=== PATIENT | male | born 1990 | race African-American/Black ===

== ENCOUNTER 2019-10-13 23:47 | Emergency (ER) | payer SELFPAY ==
[2019-10-13 23:54] VITALS: BP 130/64; PULSE 78; RESP 18; TEMP 36.9; O2SAT 100
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
[2019-10-14] MEDS: FLUORESCEIN SOD 1 MG/STRIP (01:26)
[2019-10-14] MEDS: TETRACAINE HCL 0.5% OPHTH SOLN 4 ML BTL 1 DROP (01:26)
[2019-10-14 01:42] VITALS: BP 131/81; PULSE 71; RESP 18; O2SAT 98
== END 2019-10-14 01:53 | disposition home or self-care (01) ==
PROVIDERS: Emergency Provider Emergency Medicine
DX: S05.02XA Injury of conjunctiva and corneal abrasion without foreign body, left eye, initial encounter (principal); Y04.0XXA Assault by unarmed brawl or fight, initial encounter
CPT/HCPCS: 99283; A9270

== ENCOUNTER 2019-12-25 10:56 | Emergency (ER) | payer SELFPAY ==
--- NOTE | ~2019-12-25 | XR_ITS ---
XR finger 1st RT min 2V 12/25/2019 11:25 Indication: Right first finger pain Procedure: 3 views right first finger Comparison: No prior studies for comparison. Findings: There is a nondisplaced extra-articular fracture proximal aspect of the right first metacar pal. No evidence for intra-articular extension. 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 Mild soft tissue swelling. No foreign bodies. Impression: 1: Nondisplaced extra-articular fracture right first metacarpal proximally. Reviewed, dictated and finalized at location B. Impression: 1: Nondisplaced extra-articular fracture right first metacarpal proximally.
[2019-12-25 10:58] VITALS: BP 105/68; PULSE 84; RESP 18; TEMP 36.4; O2SAT 100
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
[2019-12-25 13:40] VITALS: BP 130/92; PULSE 90; RESP 14; O2SAT 99
== END 2019-12-25 14:00 | disposition home or self-care (01) ==
PROVIDERS: Emergency Provider Emergency Medicine
DX: S62.291A Other fracture of first metacarpal bone, right hand, initial encounter for closed fracture (principal); G40.909 Epilepsy, unspecified, not intractable, without status epilepticus; F17.200 Nicotine dependence, unspecified, uncomplicated
CPT/HCPCS: 29125; 73140; 99284; A4565